=== PATIENT | female | born 1975 ===

== ENCOUNTER 2017-07-27 13:07 | Emergency (ER) | payer OTHER ==
[2017-07-27 13:10] VITALS: BP 110/72; PULSE 78; RESP 16; TEMP 98; O2SAT 100
--- NOTE | 2017-07-27 13:15 | ED PDOC ---
HPI: Psych/Substance Abuse Time Seen by Provider: 07/27/17 13:13 Chief Complaint (Nursing): Psychiatric Evaluation Chief Complaint (Provider): suicidal ideation History Per: Patient, EMS Additional Complaint(s): 41-year-old female presents to emergency department for crisis evaluation. Patient had an argument over the phone this morning with her ex- and became very upset. She locked herself in the bathroom and expressed thoughts of wanting to harm herself. Patient's 16-year-old son became concerned and contacted police. Police arrived at the home forcing patient to open bathroom door. She was brought here for further evaluation. Patient has history of suicidal attempts in the past as per her son. Upon arrival she denies any suicidal or homicidal ideation and offers no acute complaints. PMD: does not know name Past Medical History Reviewed: Historical Data, Nursing Documentation, Vital Signs Vital Signs: Last Vital Signs Temp 98 F 07/27/17 13:08 Pulse 78 07/27/17 13:08 Resp 16 07/27/17 13:08 BP 110/72 07/27/17 13:08 Pulse Ox 100 07/27/17 13:08 - Medical History PMH: No Chronic Diseases - Surgical History Surgical History: (x 2) - Family History Family History: States: No Known Family Hx - Living Arrangements Living Arrangements: With Family - Social History Current smoker - smoking cessation education provided: No Alcohol: None Drugs: Denies - Home Medications Home Medications: Ambulatory Orders Medication Instructions Recorded ALPRAZolam [Xanax] 0.25 mg PO DAILY 07/27/17 Levothyroxine [Synthroid] 0.5 mg PO DAILY 07/27/17 - Allergies Allergies/Adverse Reactions: Allergies Allergy/AdvReac Type Severity Reaction Status Date / Time No Known Allergies Allergy Verified 07/27/17 13:08 Review of Systems ROS Statement: Except As Marked, All Systems Reviewed And Found Negative Psych: Positive for: Suicidal ideation Physical Exam - Reviewed Nursing Documentation Reviewed: Yes Vital Signs Reviewed: Yes - Physical Exam Appears: Positive for: Well, Non-toxic, No Acute Distress Skin: Negative for: Rash Eye Exam: Positive for: Normal appearance Cardiovascular/Chest: Positive for: Regular Rate, Rhythm Respiratory: Positive for: Normal Breath Sounds. Negative for: Respiratory Distress Neurologic/Psych: Positive for: Alert, Oriented - Laboratory Results Result Diagrams: 07/27/17 14:44 07/27/17 14:44 Urine POC: Negative - ECG Interpretation Of ECG: Normal sinus rhythm 60 bpm, no acute changes, reviewed by the PA and ED attending. O2 Sat by Pulse Oximetry: 100 Pulse Ox Interpretation: Normal - Other Rad CXR X-Ray: Interpreted by Me, Viewed By Me X-Ray Interpretation: no acute finding Medical Decision Making Medical Decision Makin41 year old her for crisis eval Plan: 1:1 bedside observation Crisis eval CBC CMP BAL UDS UAEKG CXR As per crisis counselor and psychiatrist sql consultant, Dr. Frazier, patient does not meet criteria for admission is stable for discharge. Patient was referred to outpatient mental health clinic for follow-up. Disposition - Clinical Impression Clinical Impression: Depression - Patient ED Disposition Is Patient to be Admitted: No Counseled Patient/Family Regarding: Studies Performed, Diagnosis, Need For Followup - Disposition Referrals: [facility] [Outside] Disposition: Routine/Home Disposition Time: 17:49 Condition: STABLE Additional Instructions: Follow-up as directed. Instructions: Depression (ED) Forms: [employer] (Yakut) Print Language: TURKMEN Results - Lab Results Lab Results: 07/27/17 07/27/17 07/27/17 14:44 14:44 14:44 WBC 7.4 RBC 3.94 Hgb 12.3 Hct 35.3 MCV 89.4 MCH 31.1 H MCHC 34.8 RDW 13.5 Plt Count 319 MPV 8.1 Neut % (Auto) 59.7 Lymph % (Auto) 29.7 [place] % (Auto) 7.6 Eos % (Auto) 2.1 Baso % (Auto) 0.9 Neut # 4.4 Lymph # 2.2 [place] # 0.6 Eos # 0.2 Baso # 0.1 Sodium Potassium Chloride Carbon Dioxide Anion Gap BUN Creatinine Est GFR ( Amer) Est GFR (Non-Af Amer) Random Glucose Calcium Total Bilirubin AST ALT Alkaline Phosphatase Total Protein Albumin Globulin Albumin/Globulin Ratio Urine Color Yellow Urine Clarity Cloudy Urine pH 6.0 Ur Specific [place] 1.012 Urine Protein Negative Urine Glucose (UA) Neg Urine Ketones Negative Urine Blood Small Urine Nitrate Negative Urine Bilirubin Negative Urine Urobilinogen 0.2-1.0 Ur Leukocyte Esterase Neg Urine RBC (Auto) < 1 Urine Microscopic WBC 1 Ur Squamous Epith Cells 8 H Urine Bacteria Many H Urine Opiates Screen Negative Urine Methadone Screen Negative Ur Barbiturates Screen Negative Ur Phencyclidine Scrn Negative Ur Amphetamines Screen Negative U Benzodiazepines Scrn Positive U Oth Cocaine Metabols Negative U Cannabinoids Screen Negative Alcohol, Quantitative 07/27/17 14:44 WBC RBC Hgb Hct MCV MCH MCHC RDW Plt Count MPV Neut % (Auto) Lymph % (Auto) [place] % (Auto) Eos % (Auto) Baso % (Auto) Neut # Lymph # [place] # Eos # Baso # Sodium 138 Potassium 3.5 L Chloride 103 Carbon Dioxide 27 Anion Gap 12 BUN 11 Creatinine 0.7 Est GFR ( Amer) > 60 Est GFR (Non-Af Amer) > 60 Random Glucose 87 Calcium 9.4 Total Bilirubin 1.4 H AST 22 ALT 28 Alkaline Phosphatase 48 Total Protein 7.6 Albumin 4.3 Globulin 3.3 Albumin/Globulin Ratio 1.3 Urine Color Urine Clarity Urine pH Ur Specific [place] Urine Protein Urine Glucose (UA) Urine Ketones Urine Blood Urine Nitrate Urine Bilirubin Urine Urobilinogen Ur Leukocyte Esterase Urine RBC (Auto) Urine Microscopic WBC Ur Squamous Epith Cells Urine Bacteria Urine Opiates Screen Urine Methadone Screen Ur Barbiturates Screen Ur Phencyclidine Scrn Ur Amphetamines Screen U Benzodiazepines Scrn U Oth Cocaine Metabols U Cannabinoids Screen Alcohol, Quantitative < 10
--- NOTE | 2017-07-27 14:11 | RAD ---
HISTORY: clearance COMPARISON: No prior. FINDINGS: LUNGS: No active pulmonary disease. PLEURA: No significant pleural effusion identified, no pneumothorax apparent. CARDIOVASCULAR: Normal. OSSEOUS STRUCTURES: No significant abnormalities. VISUALIZED UPPER ABDOMEN: Normal. OTHER FINDINGS: None. IMPRESSION: No acute cardiopulmonary disease appreciated.
[2017-07-27 14:51] LABS: BASO # 0.1 K/uL (0.0-0.2); BASO % 0.9 % (0.0-2.0); EOS # 0.2 K/uL (0.0-0.7); EOS % 2.1 % (0.0-4.0); HEMOGLOBIN 12.3 g/dL (12.0-16.0); LYMPH # 2.2 K/uL (1.0-4.3); LYMPH % 29.7 % (20.0-40.0); MEAN CELL VOLUME 89.4 fl (81.0-99.0); MEAN CORPUSCULAR HEMOGLOBIN 31.1 pg (27.0-31.0); MEAN CORPUSCULAR HGB CONC 34.8 g/dL (33.0-37.0); MEAN PLATELET VOLUME 8.1 fl (7.2-11.7); MONO # 0.6 K/uL (0.0-0.8); MONO % 7.6 % (0.0-10.0); NEUT # 4.4 K/uL (1.8-7.0); NEUT % 59.7 % (50.0-75.0); RBC 3.94 Mil/uL (3.80-5.20); RED CELL DISTRIBUTION WIDTH 13.5 % (11.5-14.5); WHITE BLOOD COUNT 7.4 K/uL (4.8-10.8)
[2017-07-27 15:10] LABS: BARBITURATES, UR NEGATIVE (NEGATIVE); OPIATES, UR NEGATIVE (NEGATIVE); PHENCYCLIDINE, UR NEGATIVE (NEGATIVE)
[2017-07-27 15:18] LABS: SQUAMOUS EPITHIAL 8 /hpf (0-5); URINE BACTERIA MANY (<OCC); URINE BILIRUBIN NEGATIVE (NEGATIVE); URINE BLOOD SMALL (NEGATIVE); URINE CLARITY CLOUDY (Clear); URINE COLOR YELLOW (YELLOW); URINE GLUCOSE (UA) NEG (Normal); URINE LEUKOCYTE ESTERASE NEG Leu/uL (Negative); URINE NITRATE NEGATIVE (NEGATIVE); URINE PROTEIN NEGATIVE (NEGATIVE); URINE UROBILINOGEN 0.2-1.0 mg/dL (0.2-1.0)
[2017-07-27 15:19] LABS: ALB/GLOB RATIO 1.3 (1.0-2.1); ALBUMIN 4.3 g/dL (3.5-5.0); ALT/SGPT 28 U/L (9-52); AST/SGOT 22 U/L (14-36); BLOOD UREA NITROGEN 11 mg/dl (7-17); CALCIUM 9.4 mg/dL (8.4-10.2); GFR AFRICAN-AMERICAN > 60; GFR NON-AFRICAN AMERICAN > 60
[2017-07-27 15:30] LABS: BENZODIAZEPINES, UR POSITIVE (NEGATIVE)
--- NOTE | 2017-07-28 21:57 | CARD ---
APPROVED REPORT EKG Measurement Heart [id number] <Conclusion> Normal sinus rhythm Normal ECG
== END 2017-07-27 18:20 | disposition home or self-care (01) ==
LOC: H.ER 13:07
DX: R45.851 Suicidal ideations (principal); F32.9 Major depressive disorder, single episode, unspecified